=== PATIENT | male | born 1965 | race African-American/Black ===

== ENCOUNTER 2024-01-12 00:55 | Emergency (ER) | payer OTHER, MEDICAID ==
[~2024-01-12] VITALS: Ht 182.9 cm; Wt 87.0 kg
[2024-01-12 01:03] VITALS: BP 140/80; TEMP 97.7; O2SAT 98
[2024-01-12] MEDS ORDERED: CYCL10TA21 MT (02:16)
[2024-01-12] MEDS ORDERED: NAPR-1176 MT (02:16)
[2024-01-12 02:24] VITALS: PULSE 80; RESP 18
[2024-01-12] MEDS: IBUPROFEN 800MG TABLET PO NR (02:24)
[2024-01-12] MEDS: IBUPROFEN 800MG TABLET PO ONE (02:24)
[2024-01-12] MEDS: CYCLOBENZAPRINE 10MG TABLET PO ONE (02:24)
== END 2024-01-12 03:56 | disposition home or self-care (01) ==
LOC: ER 01:04
DX: S16.1XXA Strain of muscle, fascia and tendon at neck level, initial encounter (principal); V49.9XXA Car occupant (driver) (passenger) injured in unspecified traffic accident, initial encounter; Y93.9 Activity, unspecified; Y92.89 Other specified places as the place of occurrence of the external cause; Y99.8 Other external cause status
CPT/HCPCS: 99283